=== PATIENT | male | born 1940 | race Caucasian/White ===

== ENCOUNTER → 2016-03-18 | Outpatient (CLI) | payer MEDICARE | LOC: GMAM 14:20 | PROVIDERS: ATTEND Family Medicine | DX: R39.198 Other difficulties with micturition (principal) ==

== ENCOUNTER → 2016-12-15 | Outpatient (CLI) | payer MEDICARE | END | disposition home or self-care (01) | LOC: GMAM 14:59 | PROVIDERS: ATTEND Family Medicine | DX: Z12.5 Encounter for screening for malignant neoplasm of prostate (principal) ==

== ENCOUNTER → 2016-12-21 | Outpatient (CLI) | payer MEDICARE ==
--- NOTE | 2016-12-22 08:38 | CT ---
EXAM DESCRIPTION: Abdoment/Pelvis w/o Contrast CLINICAL HISTORY: 76 years,Male,NEPHROLITHIASIS COMPARISON: None TECHNIQUE: Multiple axial helical tomographic images were obtained of the abdomen and pelvis with out IV or oral contrast and then reconstructed sagittal coronal plane. This exam was performed using radiation doses that are As Low As Reasonably Achievable (ALARA). FINDINGS: The unenhanced liver is unremarkable. The spleen demonstrates a low-density lesion measuring 2.5 cm most likely simple cysts but this is new.. The Pancreas is unremarkable. The adrenal glands are unremarkable. There are multiple stones in the left kidney up to 2.1 cm in size in the renal pelvis. With some moderate hydronephrosis of the superior calyces. No stones in the ureter. The right collecting system demonstrates a single 2 mm stone in the lower pole. The kidneys demonstrate 2 exophytic simple cyst lateral left kidney up to 2 cm in diameter The gallbladder is unremarkable. No free air free fluid masses or adenopathy. The included bowel few diverticuli throughout the sigmoid colon but no acute disease appendix is unremarkable. The lung bases are unremarkable. The surrounding soft tissues are unremarkable. The bony elements age appropriate . IMPRESSION: Multiple stones in left kidney with the pelvic stone resulting in some mild mild hydronephrosis of the superior calyces. Few simple cysts also seen left kidney. And a tiny nonobstructing stone lower pole right kidney. Uncomplicated diverticula in the sigmoid colon. Electronically signed by: Antonio Giordano MD 12/22/2016 8:37 AM CDT
== END | disposition home or self-care (01) ==
LOC: CT 08:42
PROVIDERS: ATTEND Family Medicine
DX: E78.2 Mixed hyperlipidemia (principal); I11.0 Hypertensive heart disease with heart failure; I50.22 Chronic systolic (congestive) heart failure; I25.10 Atherosclerotic heart disease of native coronary artery without angina pectoris; R80.9 Proteinuria, unspecified; N20.9 Urinary calculus, unspecified

== ENCOUNTER 2017-01-25 10:37 | Emergency (ER) | payer MEDICARE ==
[2017-01-25 11:07] VITALS: TEMP 97.3
--- NOTE | 2017-01-25 11:34 | ED.PDOC ---
History of Present Illness - General Chief Complaint: Problem Stated Complaint: uanble to urinate Time Seen by Provider: 01/25/17 11:25 Source: patient, RN notes reviewed, Vital Signs reviewed Exam Limitations: no limitations - History of Present Illness Initial Comments: Patient presents to ER with c/o not being able to urinate and worsening pain from his kidney stones. He reports Monday night he was up every hour urinating. Last night did not get up at all to urinate and his L flank pain worsened. Has not been able to urinate other than a small dribble this morning. He has seen Dr. Jay, Urologist who wants to do a lithotripsy but patient wants to have the operation so has not gone back for treatment. He was told he had 2 small and one large kidney stone. For the past week he has been urinating blood but that seems to have improved. Timing/Duration: getting worse Quality: severe, dull, sharpness, steady Onset Location: left flank Radiation: none Activites at Onset: none Prior abdominal problems: similar symptoms Improving Factors: nothing - Reports Larry is no longer controlling his pain Worsening Factors: nothing Associated Symptoms: nocturia, urinary frequency Allergies/Adverse Reactions: Allergies NO KNOWN ALLERGY Allergy (Verified 01/25/17 11:06) Home Medications: Ambulatory Orders Ondansetron Odt [Zofran ODT] 8 mg PO Q6HR PRN #20 tab 01/25/17 levoFLOXacin [Levaquin] 500 mg PO DAILY #9 tab 01/25/17 Review of Systems - Review of Systems Constitutional: States: no symptoms reported Respiratory: States: no symptoms reported Cardiology: States: no symptoms reported Gastrointestinal/Abdominal: States: no symptoms reported Genitourinary: States: see HPI Musculoskeletal: States: see HPI, back pain Skin: States: no symptoms reported Neurological: States: no symptoms reported All other Systems: No Change from Baseline Past Medical History (General) - Patient Medical History Hx Hypertension: Yes Surgical History: other - Vaccination History Hx Influenza Vaccination: Yes Hx Pneumococcal Vaccination: Yes - Social History Hx Tobacco Use: No Cigarettes Packs Per Day: 2 Hx Alcohol Use: No Hx Substance Use: No Hx Substance Use Treatment: No Hx Depression: No - Activities of Daily Living Hospice Agency (if applicable):: None Family Medical History - Family History Mother Family History: Unknown Physical Exam - Physical Exam General Appearance: Alert, Comfortable, No apparent distress, Obese, Well Developed, Well Groomed, Well Hydrated, Well Nourished Neck: supple, normal inspection Cardiovascular/Respiratory: regular rate, rhythm, no M/R/G, no JVD, normal breath sounds, no respiratory distress Gastrointestinal/Abdominal: normal bowel sounds, soft, no organomegaly, no pulsatile mass, tenderness - Mild LUQ and suprapubic Neurologic: alert, normal mood/affect, oriented x 3 Skin Exam: normal color, warm/dry Comments: Vital Signs 01/25/17 10:56 Temperature 97.3 F L Pulse Rate [ 75 pulse ox] Respiratory 20 Rate Blood Pressure 196/94 [Left Arm] O2 Sat by Pulse 94 L Oximetry Progress - Progress Progress: 01/25/17 13:[address] show Pyelonephritis. Will give IV Levaquin - Results/Orders Results/Orders: Laboratory Tests 01/25/17 01/25/17 01/25/17 11:38 11:38 12:29 WBC 13.8 H RBC 4.67 L Hgb 14.0 Hct 41.5 L MCV 88.9 MCH 29.9 MCHC 33.6 RDW 13.0 Plt Count 149 MPV 10.4 Absolute Neuts (auto) 11.40 H Absolute Lymphs (auto) 0.70 L Absolute Monos (auto) 1.50 H Absolute Eos (auto) 0.10 Absolute Basos (auto) 0.10 Neutrophils % 82.4 H Lymphocytes % 5.1 L Monocytes % 11.2 H Eosinophils % 0.6 L Basophils % 0.7 Sodium 137 Potassium 4.7 Chloride 106 Carbon Dioxide 23 Anion Gap 12.7 BUN 37 H Creatinine 3.00 H BUN/Creatinine Ratio 12.3 Random Glucose 144 H Serum Osmolality 285.0 Calcium 9.3 Total Bilirubin 0.6 AST 16 ALT 9 L Alkaline Phosphatase 61 Serum Total Protein 7.4 Albumin 3.6 Globulin 3.8 H Albumin/Globulin Ratio 0.9 L Urine Color Yellow Urine Appearance Cloudy Urine pH 6.0 Ur Specific [place] 1.015 Urine Protein 100 H Urine Glucose (UA) Negative Urine Ketones Negative Urine Blood Large H Urine Nitrite Positive H Urine Bilirubin Negative Urine Urobilinogen 0.2 Ur Leukocyte Esterase Large H Urine RBC Obscured by wbc's H Urine WBC Tntc H Ur Epithelial Cells 0 Urine Bacteria Obscured by wbc's H - EKG/XRAY/CT CT Ordered: Yes - L kidney stones (unchanged), perinephric stranding (new) per Rad Departure - Departure Clinical Impression: Pyelonephritis, acute, Kidney stone on left side Time of Disposition: 14:36 Disposition: Discharge to Home or Self Care Condition: Good Departure Forms: ED Discharge - Pt. Copy, Patient Portal Self Enrollment Instructions: DI for Kidney Infection, DI for Kidney Stones Diet: resume usual diet, other - Increase water/fluid intake Activity: increase activity as tolerated Referrals: Ravi Estevez MD [Primary Care Provider] - 1-2 Weeks PAUL JAY MD [Referring] - 1-5 Days Prescriptions: Ondansetron Odt [Zofran ODT] 8 mg PO Q6HR PRN #20 tab PRN Reason: Nausea/Vomiting levoFLOXacin [Levaquin] 500 mg PO DAILY #9 tab Home Medications: Ambulatory Orders Ondansetron Odt [Zofran ODT] 8 mg PO Q6HR PRN #20 tab 01/25/17 levoFLOXacin [Levaquin] 500 mg PO DAILY #9 tab 01/25/17 Additional Instructions: Follow up for definitive management of your kidney stone or symptoms with worsen.
--- NOTE | 2017-01-25 12:14 | CT ---
EXAM DESCRIPTION: Abdoment/Pelvis w/o Contrast CLINICAL HISTORY: L flank pain w/ hx of kidney stones COMPARISON: December 21, 2016 TECHNIQUE: CT of the abdomen and Pelvis was performed without IV contrast. This exam was performed according to our departmental dose-optimization program, which includes automated exposure control, adjustment of the mA and/or kV according to patient size and/or use of iterative reconstruction technique. FINDINGS: Again seen are several left renal calculi including a 2.4 cm calculus in the left renal pelvis and a 2 cm calculus inferior pole left kidney, stable or slightly increased in size from the previous study. There is mild left-sided hydronephrosis with left-sided perinephric inflammation, new from the prior study. The left ureter is not dilated, and there is no left ureteral calculus. There are several small round low density left renal lesions which are enclosed characterize on this exam and probably represent cysts. There is a punctate nonobstructing right renal calculus. No right ureteral calculus or right-sided hydronephrosis. No bladder calcification. Colonic diverticulosis is noted without diverticulitis. Normal appendix. No dilated small bowel loops. Mural calcifications are present in the abdominal aorta without aneurysm. No adenopathy or pneumoperitoneum. No calcified gallstone. The exam is otherwise unremarkable for noncontrast technique. IMPRESSION: Several left renal calculi including a 2.4 cm calculus in the left renal pelvis with mild left-sided hydronephrosis and perinephric inflammation, new from December,. The possibility of left-sided pyelonephritis should be considered, and urologic consultation is recommended. No left ureteral calculus or left ureteral dilation. Punctate nonobstructing right renal calculus, but no right-sided hydronephrosis or right ureteral calculus. Colonic diverticulosis without diverticulitis. 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
[2017-01-25] MEDS ORDERED: levoFLOXacin 500MG IV 500 MG in PREMIX BAG 1 BAG IVPB ONE (13:03)
[2017-01-25] MEDS ORDERED: HYDROcodone 7.5MG/APAP 325MG 1 EA TAB PO ONE (13:05)
[2017-01-25] MEDS ORDERED: levoFLOXacin 500MG IV 100 ML IVPB ONE (13:34)
[2017-01-25 14:50] VITALS: BP 173/85; O2SAT 96
== END 2017-01-25 14:49 | disposition home or self-care (01) ==
LOC: ER 10:37
DX: N20.0 Calculus of kidney (principal); I10 Essential (primary) hypertension
CPT/HCPCS: 36415; 74176; 80053; 81001; 85025; 87086; J1956

== ENCOUNTER → 2017-04-03 | Outpatient (CLI) | payer MEDICARE ==
--- NOTE | 2017-04-04 09:26 | MRI ---
EXAM DESCRIPTION: Shoulder,Right: MRI. CLINICAL HISTORY: SHOULDER PAIN COMPARISON: None. TECHNIQUE: Multiplanar, high-field MRI, multiple sequences, without contrast: Right shoulder. FINDINGS: Full-thickness tear of the supraspinatus tendon with medial retraction. The proximal end of the tendon is between the upper convexity of the humeral head and the undersurface of the acromion process. Distal tendon remnant inserted on the anterior greater tuberosity. Fluid collection and debris in the subacromial-subdeltoid bursa. Minimal superior migration of the humeral head. Fluid also in the musculotendinous junction of the supraspinatus. Edema in the posterior fibers of the tendon. Grade 2 muscle atrophy. Grade 2 muscle atrophy of the infraspinatus. Intermediate signal in the distal tendon. Cortical erosion posterior greater tuberosity. Grade 2 muscle atrophy in the teres minor muscle. Normal tendon and normal subscapularis tendon. Moderate arthrosis and effusion AC joint. Marginal spurs with undersurface distal clavicle spur impressing on the musculotendinous junction of supraspinatus. Flattening of the coracoacromial arch. Type II curvature lateral acromion. Coracoid ligaments are intact. Large subcoracoid bursal effusion with debris. Effusion in the glenohumeral joint. Intermediate signal in the anterior labrum especially superior aspect. Posterior origination of the bicipital labral anchor. Intermediate signal in the anchor. Intermediate signal in the long head biceps tendon without fluid. No osteochondral lesions in the glenohumeral joint. IMPRESSION: 1. Full-thickness tear of the anterior mid fibers of the supraspinatus tendon with medial retraction. Tendinopathy of the posterior fibers. No significant superior migration of the humeral head. Effusion and debris in the subacromial-subdeltoid bursa. Degeneration of the infraspinatus tendon. Grade 2 muscle atrophy in the rotator cuff. 2. Osteoarthrosis of the AC joint. Inferior marginal spurs impressing on the musculotendinous junction of the supraspinatus. Flattening of the coracoacromial arch. Effusions of the coracoid bursa with debris. 3. Degeneration of the glenoid labrum but no definite tear. Degenerative changes in the bicipital labral anchor and proximal long head biceps tendon. 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
== END ==
LOC: MRI 14:11
PROVIDERS: ATTEND Family Medicine
DX: M75.101 Unspecified rotator cuff tear or rupture of right shoulder, not specified as traumatic (principal); M25.411 Effusion, right shoulder; M19.011 Primary osteoarthritis, right shoulder; M62.511 Muscle wasting and atrophy, not elsewhere classified, right shoulder; R53.83 Other fatigue; I10 Essential (primary) hypertension

== ENCOUNTER → 2017-08-29 | Outpatient (CLI) | payer MEDICARE | LOC: GMAM 14:27 | PROVIDERS: ATTEND Family Medicine | DX: N39.0 Urinary tract infection, site not specified (principal); Z12.5 Encounter for screening for malignant neoplasm of prostate | CPT/HCPCS: 87086; G0103 ==

== ENCOUNTER → 2017-08-30 | Outpatient (CLI) | payer MEDICARE | LOC: GMAM 14:53 | PROVIDERS: ATTEND Family Medicine | DX: J18.9 Pneumonia, unspecified organism (principal) ==

== ENCOUNTER → 2017-09-13 | Outpatient (CLI) | payer MEDICARE | LOC: GMAM 17:22 | PROVIDERS: ATTEND Family Medicine | DX: R80.9 Proteinuria, unspecified (principal) ==

== ENCOUNTER → 2018-08-15 | Outpatient (CLI) | payer MEDICARE ==
--- NOTE | 2018-08-16 11:50 | CT ---
EXAM DESCRIPTION: Abdoment/Pelvis w/o Contrast CLINICAL HISTORY: 78 years, Male, Chronic kidney disease/kidney stones COMPARISON: Previous CT abdomen and pelvis without contrast January 25, 2017 TECHNIQUE: CT of the abdomen and pelvis is performed according to our non contrast protocol. FINDINGS: The lung bases are clear. Heart size is prominent. Small cyst in the spleen measures 1.8 cm with a density of 3.9 Hounsfield units unchanged from previous. Liver, spleen, and pancreas are otherwise unremarkable. No calcified stones in the gallbladder. Adrenal glands appear normal in size with slightly nodular appearance consistent with small adenomas or mild nodular hyperplasia. The right kidney is small with nonobstructing lower calculus 6 mm. The left kidney contains multiple stones. The largest calculus is in the left renal pelvis and measures 2.6 cm. Previously this measured 2.5 cm. A stone in this location may intermittently cause obstruction. There is mild distention of the intrarenal collecting system on the left. Perinephric stranding is negligible however. There is a cyst in the lateral left kidney 2.4 cm. Smaller stones are clustered in posterior lower left calyces with a large lower left calyceal calculus measuring 2.1 cm. Aortic diameter is mildly prominent 2.7 cm. Small bowel loops appear normal in caliber with normal wall thickness. There is no lymphadenopathy, inflammation, or free fluid observed. In the pelvis, the appendix is normal. No inflammation around the cecum or terminal ileum or sigmoid colon. No stones in the distal ureters or bladder. Rectal wall thickness is normal for degree of distention. No free fluid or mass in the pelvis. Prostate appears normal. No inguinal or lower pelvic adenopathy. Coronal and sagittal reformatted images confirm the findings. IMPRESSION: Largest stone in the left renal pelvis 2.6 cm with mild left hydronephrosis. Additional nonobstructing calculi in both kidneys, left more than right. This exam was performed according to our departmental dose-optimization program, which includes automated exposure control, adjustment of the mA and/or kV according to patient size and/or use of iterative reconstruction technique. Total DLP equals 1130.68 mGycm. Electronically signed by: Chirag Beal MD 08/16/2018 11:47 AM CDT
== END ==
LOC: CT 14:30
PROVIDERS: ATTEND Internal Medicine Nephrology
DX: N18.4 Chronic kidney disease, stage 4 (severe) (principal); N13.2 Hydronephrosis with renal and ureteral calculous obstruction

== ENCOUNTER → 2018-11-08 | Outpatient (CLI) | payer MEDICARE | LOC: GMAM 14:42 | PROVIDERS: ATTEND Family Medicine | DX: Z12.5 Encounter for screening for malignant neoplasm of prostate (principal) ==

== ENCOUNTER → 2018-11-27 | Outpatient (CLI) | payer MEDICARE ==
--- NOTE | 2018-11-29 08:46 | CT ---
EXAM DESCRIPTION: Chest w/o Contrast : Computed Tomography. CLINICAL HISTORY: 78 years Male cough COMPARISON: CT scan of the abdomen on the same visit. Chest x-ray November 14, 2018. TECHNIQUE: Spiral-axial scans at 5 x 5 mm intervals through the lungs and thorax without IV contrast. 2.5 x 5 mm lung algorithm axial reconstructions. Coronal and sagittal 2.0 Mm reconstructions. Total Exam DLP: 436.34 mGy-cm. This exam was performed according to our departmental dose-optimization program which includes automated exposure control, adjustment of the mA and/or kV according to patient size and/or use of iterative reconstruction technique; to reduce radiation dose to as low as reasonably achievable (ALARA). Nodule measurements under 10 mm are given as mean value of 3 axes diameters. FINDINGS: Lungs and large airways: pleural parenchymal scarring in the bilateral apices and in the base of the right upper lobe. Also bilateral lower lobes. Bilateral mild perihilar peribronchial wall thickening. No abnormal nodules or masses. No focal infiltrates. Bilateral occasional parenchymal blebs. Pleural spaces: Negative. Mediastinum and Yamilex: Evaluation limited due to lack of IV contrast small lymph nodes with no dominant solid masses. Great vessels and Heart: Coronary artery calcifications and stents. Atherosclerotic calcifications brachiocephalic vessels aortic arch and descending thoracic aorta. Soft tissues of neck base, axillae, and chest wall: Prior sternotomy. Normal size axillary lymph nodes. Upper abdomen: Please see abdominal CT scan images and report today. Osseous structures: Degenerative gas in the left glenohumeral joint. No lytic or blastic lesions. Minimal arthrosis in the right glenohumeral joint. IMPRESSION: 1. Minimal emphysematous changes in the lungs more in the upper lobes. No abnormal nodules. No masses. No focal infiltrates. Bilateral pleural-parenchymal scarring. Electronically signed by: Ashok Guzman MD 11/29/2018 8:45 AM CDT
--- NOTE | 2018-11-29 09:32 | CT ---
EXAM DESCRIPTION: Abdomen/Pelvis w/o Contrast: Computed Tomography. CLINICAL HISTORY: 78 years Male Generalized abdominal pain COMPARISON: CT scan of the abdomen and pelvis without contrast 08/15/2018. TECHNIQUE: Spiral-axial scans 5 x 5 mm intervals through the abdomen and pelvis without oral or IV contrast. Coronal and sagittal 2.0 mm reconstructions. Total Exam DLP: 810.02 mGy-cm. This exam was performed according to our departmental CT dose-optimization program which includes automated exposure control, adjustment of the mA and/or kV according to patient size and/or use of iterative reconstruction technique; to reduce radiation dose to as low as reasonably achievable (ALARA). FINDINGS: Lung bases and pleura: Please see chest CT images and report today. Kidneys and Ureters: 2 large stones in the left kidney one in the pelvis measuring 2.3 x 1.8 x 1.5 cm and the second in the inferior collecting system measuring 1.9 x 1.8 x 1.0 cm. Another collection of stones lower pole measuring 1.3 x 0.5 x 0.7 cm. These are stable in size since the prior study. 2 isolated smaller stones 2 mm or less in the lower pole. Mild to moderate left hydronephrosis also stable. Pararenal edema and juxta cortical inferior pole cyst are unchanged. Atrophy of the right kidney and thinning cortex again seen with 4 mm nonobstructing stone in the inferior collecting system and perirenal stranding also stable. Ureters bilaterally are unremarkable. Liver, stomach, spleen, and adrenal glands: Long axis of the right hepatic lobe 17.5 mm. No focal lesions. Smooth capsule. Stomach distended with food and fluid as well as proximal duodenum. This could be due to an inflammatory or infectious process. Small perigastric lymph nodes. Stable 1.5 cm splenic cyst. Adrenal glands negative. Pancreas, Gallbladder, and Ducts: Small radiodense object in the fundus of the gallbladder is stable. Pancreas and duct negative. Mesentery: Pararenal stranding is previously described, otherwise no free air or free fluid. Aorta: Moderate atherosclerotic calcification including origins of the major branch vessels. Dual channel noted in the distal abdominal aorta above the bifurcation 2.6 x 2.5 cm abdominal aneurysm just below the origin of the renal arteries. No change since the prior study. 2.7 x 2.5 cm diameter at the origin of the celiac axis. Stable since the prior study. Small Bowel: Scattered gas and fluid with no distended segments. Terminal Ileum/Cecum: Gas and fecal material normal caliber. Normal caliber of the appendix. Stable since the prior study. Colon: Fecal matter throughout the colon with moderate distention of the ascending colon and moderate distention of the rectosigmoid which is also minimally redundant with diverticula. No complications. Pelvic Organs: Prostate gland abutting the seminal vesicles and the urinary bladder. No free fluid or adenopathy. Spine and Bony Pelvis: Minimal narrowing of L5-S1 disc space and posterior bulging disc at this level and L3-4 stable. Hypertrophic changes in the superior lateral acetabular articular margins but minimal joint space narrowing. Minimal arthrosis in the SI joints and pubic symphysis. No change from the prior study. Abdominal Wall/Back Soft Tissues: Right fatty inguinal hernia not containing bowel. IMPRESSION: 1. Large obstructing stone in the left renal pelvis, left lower collecting systems and other smaller stone collections and solitary stones. Mild to moderate left hydronephrosis and perirenal fascial thickening. Stable since the prior study. Nonobstructing stone right kidney. Bilateral ureters are negative. 2. Moderate colonic obstipation ascending colon and rectosigmoid. Diverticulosis in the sigmoid with no complications stable. 3. Distended stomach with fluid and fluid with no mechanical obstruction. Also extending into the pylorus and proximal duodenum. Small lymph nodes. Not seen on the prior study. This can be due to gastritis or inflammatory process. 4. 2.6 cm abdominal aortic aneurysm suspected. Stable since the prior study. Recommend follow-up every 5 years. Reference: J Am Erin Radiol 2013;10:789-794. 5. Stable fatty right inguinal hernia not containing bowel. Electronically signed by: Ashok Guzman MD 11/29/2018 9:31 AM CDT
== END ==
LOC: CT 15:00
PROVIDERS: ATTEND Family Medicine
DX: N13.2 Hydronephrosis with renal and ureteral calculous obstruction (principal); K40.90 Unilateral inguinal hernia, without obstruction or gangrene, not specified as recurrent; K57.30 Diverticulosis of large intestine without perforation or abscess without bleeding; K59.00 Constipation, unspecified; I71.4 Abdominal aortic aneurysm, without rupture; J43.9 Emphysema, unspecified; R91.8 Other nonspecific abnormal finding of lung field

== ENCOUNTER → 2019-08-06 | Outpatient (CLI) | payer MEDICARE | LOC: GMAM 14:05 | PROVIDERS: ATTEND Family Medicine | DX: E53.8 Deficiency of other specified B group vitamins (principal); R53.83 Other fatigue; E55.9 Vitamin D deficiency, unspecified ==

== ENCOUNTER → 2020-02-19 | Outpatient (CLI) | payer MEDICARE | LOC: GMAM 14:11 | PROVIDERS: ATTEND Family Medicine | DX: E53.8 Deficiency of other specified B group vitamins (principal); R53.83 Other fatigue; E55.9 Vitamin D deficiency, unspecified; Z12.5 Encounter for screening for malignant neoplasm of prostate | CPT/HCPCS: 82306; 82607; 84439; 84443; G0103 ==

== ENCOUNTER → 2020-02-25 | Outpatient (CLI) | payer MEDICARE ==
--- NOTE | 2020-02-26 12:13 | CT ---
EXAM DESCRIPTION: Chest w/o Contrast CLINICAL HISTORY: 79 years Male, NICOTINE DEPENDENCE COMPARISON: CT chest 11/27/2018. TECHNIQUE: CT images through the chest without IV contrast. Multiplanar reformations provided. This exam was performed according to our departmental dose-optimization program, which includes automated exposure control, adjustment of the mA and/or kV according to patient size and/or use of iterative reconstruction technique. CT CHEST FINDINGS: Heart and mediastinum: Normal heart size. No pericardial effusion. Unremarkable esophagus. Moderate atherosclerosis. 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 This previously measured 3.5 cm. Thyroid Gland: Normal. Lungs: Mild emphysematous changes with no suspicious nodule or mass.. Airways: Normal. Pleura: Normal. Musculoskeletal and Soft Tissues: No acute fracture or aggressive appearing osseous lesion. Soft tissues unremarkable. Subphrenic Structures: Stomach moderately distended with gastric contents. IMPRESSION: 1. No acute abnormality of the chest. 2. Mild emphysematous changes. 3. Slightly increased size of focal aneurysmal dilatation of the aortic arch. Electronically signed by: Dov Rodriguez MD 02/26/2020 12:12 PM [facility]
== END ==
LOC: CT 13:49
PROVIDERS: ATTEND Family Medicine
DX: J43.9 Emphysema, unspecified (principal); I71.9 Aortic aneurysm of unspecified site, without rupture; Z87.891 Personal history of nicotine dependence

== ENCOUNTER → 2020-03-20 | Outpatient (CLI) | payer MEDICARE | LOC: GMAM 13:13 | PROVIDERS: ATTEND Family Medicine | DX: I10 Essential (primary) hypertension (principal) ==

== ENCOUNTER → 2020-03-24 | Outpatient (CLI) | payer MEDICARE ==
--- NOTE | 2020-03-25 10:31 | MRI ---
EXAM DESCRIPTION: Brain w/o Contrast: MRI. CLINICAL HISTORY: VISUAL LOSS COMPARISON: None. TECHNIQUE: Multiplanar, high-field MRI unit, multiple diffusion sequences, multiple conventional sequences without contrast. FINDINGS: Bilateral confluent hyperintense FLAIR and T2-weighted signal in the periventricular white matter beginning above the basal ganglia, and involving the frontal and occipital horns and extending into the centrum semiovale. Associated with bilateral foci of lesions with similar signal in the subcortical white matter. Asymmetrically increased size of lesions in the right cerebral lobes compared to the left with relative sparing of the bilateral temporal lobes. Also asymmetric increased fluid signal in the left occipital lobe. This right cerebral increased white matter involvement is associated with asymmetric cortical atrophy in the right occipital and parietal lobes. Mild degree of gliosis as well.. No hemorrhage, no cerebral edema, no midline shift.. No diffusion restriction. Similar focus of signal described above in the right basal ganglia. Also focal hyperintense T2 and T2*focus and hypointense FLAIR and T1 focus extending to the right frontal periventricular white matter, consistent with old infarction. No diffusion restriction. No hemorrhage, no cerebral edema, no mass-effect. Normal signal in the left basal ganglia. Normal signal in the brainstem and cerebellar hemispheres. Concordance of the diffusion and non-diffusion sequences with no diffusion restriction. Cortical sulci, ventricles, and other CSF spaces, and the subdural spaces are showing age-related changes, except for the asymmetry described previously. No effacement or displacement. No midline shift. No extra-axial hemorrhage. Dolichoectasia of the basilar artery. Otherwise normal flow signal void in the major vessels of the [place], and the venous sinuses. IACs are symmetric bilaterally. Normal signal in the bilateral mastoid air cells. No mass effect in the bilateral cerebellopontine angles. Pituitary gland occupies most of the sella. Base of the cerebellar tonsils is just above the foramen magnum. Minimal mucoperiosteal thickening in the paranasal sinuses.. No mass effect on the distal optic tracts, optic chiasm, or proximal optic nerves bilaterally. The bony calvarium is intact. IMPRESSION: 1. Diffuse white matter lesions in the cerebral hemispheres, with more involvement of the right cerebrum in the left occipital lobe. No diffusion restriction, no hemorrhage, no mass effect or midline shift. These lesions are most likely related to cerebral microvascular disease and aging. No acute or subacute CVA. Also associated with asymmetric cortical atrophy right parietal and occipital lobe. 2. Minimal chronic paranasal sinusitis. Electronically signed by: Ashok Guzman MD 03/25/2020 10:29 AM [facility]
== END ==
LOC: MRI 09:29
PROVIDERS: ATTEND Family Medicine
DX: H54.7 Unspecified visual loss (principal); R90.82 White matter disease, unspecified; G31.9 Degenerative disease of nervous system, unspecified; J32.9 Chronic sinusitis, unspecified

== ENCOUNTER → 2020-03-25 | Outpatient (CLI) | payer MEDICARE ==
--- NOTE | 2020-03-26 16:53 | US ---
EXAM DESCRIPTION: Renal Arteries: Ultrasound. CLINICAL HISTORY: ESSENTIAL HYPERTENSION COMPARISON: Two-dimensional ultrasound evaluation of the bilateral kidneys on the same visit. TECHNIQUE: Transcutaneous scanning: Grayscale mode. Doppler peak systolic and end-diastolic velocities/measurements of the abdominal aorta, renal arteries, intra renal arteries, and renal veins. FINDINGS: PSV (cm/sec): Aorta: 167 Right renal artery: 26 Left renal artery: 92.3 EDV (cm/sec): Right renal artery: 11.7 Left renal artery: 24.5 Renal veins: Visualized IVC: Not well visualized. Intrarenal RI's: Proximal segmental Right: 0.62 Left: 0.55. Mid segmental Right: 0.52 Left: 0.54. Distal segmental Right: 1.0 Left: 0.76 Renal Aortic Ratio: Right RAR = RRA PSV/Aortic PSV = 26 /167= 0.2. Left RAR = LRA PSV/Aortic PSV = 92/167 = 0.6. End Diastolic Ratio: Right EDR = RRA EDV/RRA PSV = 11.7/26 = 0.45. Left EDR = LRA EDV/LRA PSV = 24.5/92.3= 0.265. Other: None. IMPRESSION: 1. Bilateral renal artery ratios are within normal range with no evidence of significant renal artery stenosis. 2. End-diastolic ratios and bilateral renal parenchymal resistive indices are consistent with NO significant renal vascular parenchymal disease. Electronically signed by: Ashok Guzman MD 03/26/2020 4:51 PM [facility]
== END ==
LOC: US 11:17
PROVIDERS: ATTEND Family Medicine
DX: I10 Essential (primary) hypertension (principal)

== ENCOUNTER → 2020-04-03 | Outpatient (CLI) | payer MEDICARE ==
--- NOTE | 2020-04-03 16:24 | MRI ---
EXAM DESCRIPTION: Abdomen: MRI. 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 . Recent spike in blood pressure. Abnormally increased blood levels of catecholamines and VMA. COMPARISON: MRI scan of the pelvis on this visit. CT scan of the abdomen without contrast November 2018. Stone in the inferior right kidney on the prior study is not well seen on this study. TECHNIQUE: Multiplanar, high-field MRI, multiple sequences, without contrast: right ortho study was performed without gadolinium IV contrast due to patient's poor renal function. FINDINGS: Adrenal gland: Right adrenal gland normal shape and no mass no adjacent edema or fatty changes. Left adrenal gland with well-defined oval-shaped fatty density structure in the superior-lateral gland measuring 11 x 8 mm. Second oval-shaped object with well-defined mi inferior-anterior left adrenal gland measuring 15 x 8 mm and fatty density. These show no diffusion signal changes/ identical to diffusion in the right adrenal gland, and no fluid density changes. These nodules appear to demonstrate hypointense, fat saturation. Lung and Pleural bases: Lung bases densely unremarkable with no pleural effusion. Stomach, Liver, and Spleen: Liver negative. Cyst in the spleen. Fluid proximal colon and gas distal colon. Kidneys: Juxtacortical cysts bilaterally. Significant loss of volume and cortical thickness in the right kidney. Multiple low density objects in the inferior collecting system of the left kidney, in an area measuring 2.2 x 1.8 cm, most likely kidney stones. Additional low signal object measuring 2.2 x 1.6 x 1.9 cm in the inferior left renal pelvis. Mild to moderate hydronephrosis in the kidney. These stones are seen on the prior CT scan of the abdomen. Aorta: Tortuous abdominal aorta with low signal peripheral calcifications but no aneurysm. No para-aortic mass. No periaortic adenopathy. Small Bowel: Included segments of small bowel with no distention. TI and Cecum: Negative. Colon: Minimal thecal matter in the proximal colon. No air-fluid levels or significant distention. Distal colon not included on the study. Abdominal wall and back soft tissues: Sternotomy wires inferior sternum. Mesentery: No free fluid. Osseous structures: Minimal spondylosis inferior lumbar spine. No paravertebral complex mass or unusual density. IMPRESSION: 1. Limited study due to lack of IV gadolinium contrast with patient having poor renal function. 2. 2 small fatty density objects in the left adrenal gland are most likely adrenal adenomas. No periadrenal mass. No paraspinal mass. Right adrenal gland unremarkable. 3. 2.2 cm stone in the inferior left renal pelvis. 2.2 cm collection of stones inferior collecting system left kidney. Minimal to moderate hydronephrosis. Electronically signed by: Ashok Guzman MD 04/03/2020 4:22 PM [facility]
--- NOTE | 2020-04-03 16:43 | MRI ---
EXAM DESCRIPTION: Pelvis w/o Contrast: Computed Tomography. CLINICAL HISTORY: pheochromocytoma. COMPARISON: MRI scan abdomen without contrast on the same visit. CT scan abdomen and pelvis November 2018. TECHNIQUE: Multiple [place] MRI sequence scans in multiple planes through the pelvis without gadolinium IV contrast. Gadolinium IV contrast cannot be given due to patient decreased renal function. FINDINGS: Pelvic Organs: Urinary bladder is visualized with minimal wall thickening but no mass. Evaluation is limited due to lack of IV contrast. No mass is abutting the urinary bladder. Prostate gland impressing on the base of the urinary bladder. No fluid in the cul-de-sac.. Mesentery: No fatty stranding or abnormal fatty mesenteric signal. Small Bowel: Included small bowel with no distended loops or air-fluid levels. Terminal Ileum: Not well visualized. Cecum: Not well visualized. Colon: With fecal matter but no significant distention or air-fluid levels. Spine and Bony Pelvis: Transitional S1 segment with rudimentary S1-S2 disc space. L4-L5 disc at L5-S1 discs are bulging into the canal with canal and foraminal narrowing. No paraspinal fluid collection or mass, but sensitivity limited due to lack of gadolinium IV contrast.. Inguinal Canals: Small fatty hernia not containing bowel on the right. Pelvic Wall/Back Soft Tissues: Included abdominal wall is unremarkable. IMPRESSION: No abnormal signal or mass involving the bladder or the pelvis around the bladder or in the paraspinal soft tissues. Sensitivity is decreased due to lack of gadolinium IV contrast. No free fluid. Colonic findings in the lumbar spine. Prostate gland impressing on the base of the urinary bladder. Electronically signed by: Ashok Guzman MD 04/03/2020 4:41 PM [facility]
== END ==
LOC: MRI 13:21
PROVIDERS: ATTEND Family Medicine
DX: Z01.812 Encounter for preprocedural laboratory examination (principal); C74.10 Malignant neoplasm of medulla of unspecified adrenal gland; N20.0 Calculus of kidney; N13.30 Unspecified hydronephrosis; E27.9 Disorder of adrenal gland, unspecified